=== PATIENT | female | born 2005 ===

== ENCOUNTER → 2024-11-25 | Outpatient (CLI) | payer MEDICAID ==
[2024-11-25] VITALS (14 sets, daily range): BP systolic 106–124; BP diastolic 52–91; PULSE 77–105
== END | disposition home or self-care (01) ==
LOC: CARD DIAG 07:45
PROVIDERS: ATTEND Internal Medicine Cardiovascular Disease
DX: R55 Syncope and collapse (principal)
CPT/HCPCS: 93660